=== PATIENT | male | born 1960 | race Two or more races ===

== ENCOUNTER 2023-09-10 09:19 | Emergency (ER) | payer OTHER ==
[2023-09-10 09:31] VITALS: BP 134/86; PULSE 96; RESP 18; TEMP 98.2; BMI 25.8
[2023-09-10] MEDS ORDERED: valACYclovir HCL 500 MG TABLET (FP) ONE (11:39)
[2023-09-10] MEDS ORDERED: ACETAMINOPHEN 325 MG TABLET (FP) ONE (11:39)
[2023-09-10] MEDS: ACETAMINOPHEN 325 MG TABLET (FP) PO ONE (11:44)
[2023-09-10] MEDS: valACYclovir HCL 500 MG TABLET (FP) PO ONE (11:45)
== END 2023-09-10 11:47 | disposition home or self-care (01) ==
LOC: JER 09:19 → JERFT 09:19
DX: R21 Rash and other nonspecific skin eruption (principal); R50.9 Fever, unspecified; R51.9 Headache, unspecified; B02.9 Zoster without complications
CPT/HCPCS: 99283-25